=== PATIENT | female | born 2000 | race Caucasian/White ===

== ENCOUNTER 2025-06-01 09:12 | Emergency (ER) | payer MEDICAID, SELFPAY ==
[2025-06-01 09:13] VITALS: BMI 21.6
[2025-06-01 09:18] VITALS: BP 142/90; PULSE 78; RESP 18; TEMP 36.8; O2SAT 100
--- NOTE | 2025-06-01 09:20 | XR_ITS ---
Examination: Tibia-Fibula, left , 2 views Technique: Tibia-fibula AP lateral 2 views Date and time of exam: June 01, 2025, 1005 hrs. Indications: Patient fell today with injury to the lower leg, lower leg pain and bruising. Findings: No acute fracture. No dislocation. No foreign body Impression: No acute fracture
--- NOTE | 2025-06-01 09:20 | XR_ITS ---
Examination: Knee, left , 3 views Technique: Knee AP, lateral, oblique 3 views Date and time of exam: June 01, 2025 1002 hrs. Indications: Patient fell today with injury to the knee, knee pain. Findings: No acute fracture. No dislocation. No foreign body Impression: No acute fracture.
--- NOTE | 2025-06-01 09:45 | EDNOTE_ITS ---
<Statement entered by Delmis Muñoz MD - 06/16/25 06:34> As co-signing physician, I was present and available for consult prn. I concur with the plan and care as documented by the midlevel provider. Lower Extremity Injury RME/HPI General Chief Complaint: General Adult/Misc Complain Stated Complaint: L) KNEE SMASKED BETWEEN FENCE & HORSE Time Seen by Provider: 06/01/25 09:21 Source: patient Arrival date/time: 06/01/25 09:12 24-year-old female with no known medical history presents to the emergency room with a chief complaint of left knee tenderness and swelling after getting her knee smashed between a fence and a horse this morning. Mode of arrival: ambulatory Limitations: no limitations Related Data Previous Rx's ?Medication ?Instructions ?Recorded ibuprofen 600 mg tablet 600 mg PO TID PRN pain #20 t abs 12/13/20 tramadol 50 mg tablet 50 mg PO TID PRN pain #15 ta bs 05/07/21 Allergies Allergy/AdvReac Type Severity Reaction Status Date / Time No Known Allergies Allergy Verified 06/01/25 09:15 Review of Systems Review of Systems Systems Reviewed: All systems reviewed, normal except as documented Constitutional Constitutional: Reports system reviewed and no additional complaints, except as documented, Denies fatigue, Denies fever(s), Denies headache(s) and Denies weakness Eyes Eyes: Reports system reviewed and no additional complaints, except as documented, Denies blurry vision and Denies change in vision ENT Ears, Nose, Mouth, and Throat: Reports system reviewed and no additional complaints, except as documented, Denies otalgia, Denies headache(s), Denies nasal congestion, Denies throat swelling and Denies vertigo Cardiovascular Cardiovascular: Reports system reviewed and no additional complaints, except as documented, Denies chest pain, Denies dyspnea and Denies dyspnea on exertion Respiratory Respiratory: Reports system reviewed and no additional complaints, except as documented, Denies chest congestion, Denies cough, Denies dyspnea, Denies dyspn ea on exertion and Denies wheezing Gastrointestinal Gastrointestinal: Reports system reviewed and no additional complaints, except as documented, Denies abdominal pain, Denies cramping, Denies nausea and Denies vomiting Genitourinary Genitourinary: Reports system reviewed and no additional complaints, except as documented Musculoskeletal Musculoskeletal: Reports system reviewed and no additional complaints, except as documented, Reports arthralgias, Denies back pain, Reports joint swelling and Reports limited range of motion Integumentary/Breasts Skin/Breast: Reports system reviewed and no additional complaints, except as documented and Denies wounds Neurologic Neurologic: Reports system reviewed and no additional complaints, except as documented, Denies confusion, Denies headache(s), Denies lack of coordination, Denies vertigo and Denies weakness Psychiatric Psychiatric: Reports system reviewed and no additional complaints, except as documented, Denies anxiety, Denies confusion, Denies depression, Denies paranoia, Denies suicidal ideation and Denies tactile hallucinations Endocrine Endocrine: Reports system reviewed and no additional complaints, except as documented and Denies fatigue Hematologic/Lymphatic Hematologic/Lymphatic: Reports system reviewed and no additional complaints, except as documented and Denies lymphadenopathy Allergic/Immunologic Allergic/Immunologic: Reports system reviewed and no additional complaints, except as documented, Denies throat swelling, Denies urticaria and Denies wheezing ED Exam General Limitations: Present no limitations General appearance: Present alert and in no apparent distress Head Head exam: Present atraumatic Eye Eye exam: Present normal appearance, PERRL and EOMI ENT ENT exam: Present normal exam, normal oropharynx and mucous membranes moist Neck Neck exam: Present normal inspection, full ROM and trachea midline Chest Chest inspection: Present normal inspection and symmetric chest wall rise Respiratory Respiratory exam: Present normal lung sounds bilaterally Cardiovascular Cardiovascular exam: Present regular rate, normal rhythm and normal heart sounds Abdominal Exam Abdominal exam: Present soft and normal bowel sounds Extremities Exam Extremities exam: Present normal inspection and full ROM Expanded Lower Extremity Exam Hip/Pelvis exam: Present normal inspection Upper leg exam: Present normal inspection Knee exam: Present tenderness and swelling Lower leg exam: Present tenderness and swelling Ankle exam: Present normal inspection Foot/toe exam: Present normal inspection Gait: observed and normal Back Exam Back exam: Present normal inspection and full ROM Neurological Exam Neurological exam: Present alert, oriented X3 and CN II-XII intact Psychiatric Psychiatric exam: Present normal affect and normal mood Skin Skin exam: Present warm, dry, intact and normal color Course Quality Measures none Orders Category Date Time Status XR knee LT 3V Stat Exams 06/01/25 09:20 Completed XR tibia fibula LT 2V Stat Exams 06/01/25 09:20 Completed Vital Signs Vital signs: Vital Signs Temperature 98.2 F 06/01/25 09:18 Pulse Rate 78 06/01/25 09:18 Respiratory Rate 18 06/01/25 09:18 Blood Pressure 142/90 H 06/01/25 09:18 Pulse Oximetry (%) 100 06/01/25 09:18 Oxygen Delivery Method Room Air 06/01/25 09:18 Extremity Injury, Lower MDM Narrative MDM Narrative:: 24-year-old female with no known medical history presents to the emergency room with a chief complaint of left knee tenderness and swelling after getting her knee smashed between a fence and a horse this morning. Patient is hemodynamically stable and in no apparent distress Physical examination shows tenderness and pain to the patient's left knee as well as left tib-fib. There is some bruising and swelling to the tib-fib area under the left kneecap. X-ray of the tib-fib as well as the knee were completed and were negative for any acute fracture or dislocation Patient was discharged and educated to follow-up with primary care provider in the next 24 to 48 hours and return to the emergency room for any evidence of worsening signs or symptoms Patient data External records reviewed:: [facility] previous records Clinical information provided by:: patient Social determinants that could affect healthcare access:: none Patient has the following chronic illnesses:: No chronic illness How is presenting disease/condition affected by chronic disease/condition?: no chronic disease Evaluation data The following diagnostics were reviewed and interpreted by me:: lab results and radiology exam(s) Lab and/or radiology exams considered but not ordered:: Labs and radiology exams considered and ordered Interpretation Summary: Tib-fib [id number]: No acute fracture. No dislocation. No foreign body Impression: No acute fracture Knee [id number]: No acute fracture. No dislocation. No foreign body Impression: No acute fracture. Medications / Prescriptions Medications or Prescriptions considered but not ordered:: N/A Medication administrations:: N/A Consultations Consultation(s) initiated? (list below): No Diagnosis Extremity Injury, Lower Differential Diagnosis: other (Left leg pain/left knee fracture/left knee dislocation/tib-fib fracture) Most likely diagnosis given after review of the tests above:: Left leg pain Admission Indicated Admission indicated?: not indicated Admission Request Was there a request for admission?: No Disposition Plan Disposition Plan: Discharge Discharge Attestation Discharge Attestation: The patient and all family members were given an opportunity to ask questions and understood the discharge instructions. Discharge instructions specifically effects, indications for sooner follow up or return to the emergency department, and the expected course of current diagnosis. Patient condition: Stable Discharge Plan Plan Patient Disposition: HOME (Self Care) Discharge Disposition comment: Stable Prescriptions/Referrals Prescriptions/Med Rec: No Action ibuprofen 600 mg tablet 600 mg PO TID PRN (Reason: pain) Qty: 20 0RF tramadol 50 mg tablet 50 mg PO TID PRN (Reason: pain) Qty: 15 0RF Referrals: Brianna Reyes PA-C [Primary Care Provider] - In 1 week Problem List Clinical Impression: Acute pain of left lower extremity Patient/Caregiver Discharge Instructions Education Materials: ED Knee Sprain, ED Myalgias Additional Instructions: Please follow-up with your primary care provider in the next 24 to 48 hours X-ray of your left lower leg and knee were completed and were negative for any acute fracture or dislocation For any evidence of worsening signs or symptoms return to the emergency room immediately Print Language: Micronesian Stand Alone Forms: Anastacia Award Info., Patient Portal Info Letter ANTHONY/IMELDA Supervising Physician ANTHONY/IMELDA Supervising Physician: Dr. MUÑOZ
== END 2025-06-01 12:28 | disposition home or self-care (01) ==
PROVIDERS: Emergency Provider Emergency Medicine; PCP Physician Assistant
DX: S80.12XA Contusion of left lower leg, initial encounter (principal); R22.42 Localized swelling, mass and lump, left lower limb; X58.XXXA Exposure to other specified factors, initial encounter
CPT/HCPCS: 73562; 73590; 99283